=== PATIENT | female | born 1950 | race Caucasian/White ===

== ENCOUNTER 2017-01-17 08:30 | Outpatient (CLI) | payer OTHER ==
--- NOTE | 2017-01-17 11:25 | DIAGNOSTIC IMAGING REPORT ---
PROCEDURE: US ART LOWER EXT WITH BOOKER-B/L INDICATION: Diabetic wound right calf. TECHNIQUE: Preexercise ABIs were performed. The patient could not exercise (wheelchair-bound). Subsequently, color Doppler duplex imaging of the lower study was performed COMPARISON: None. FINDINGS: Study is partially limited due to body habitus. RIGHT LOWER EXTREMITY: ABIs: The patient declined blood pressure cuff due to right calf wound. 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 RIGHT LOWER EXTREMITY PEAK SYSTOLIC VELOCITIES: Common femoral artery: Triphasic 164 cm/second. Profunda femoral artery: Biphasic 56 cm/second. Proximal superficial femoral artery: Triphasic 127 cm/second. Mid superficial femoral artery: Triphasic 145 cm/second. Distal superficial femoral artery: Triphasic 103 cm/second. Popliteal artery: Triphasic 88 cm/second. Proximal posterior tibial artery: Monophasic 109 cm/second. Proximal anterior tibial artery: Biphasic 86 cm/second. Peroneal artery: N/A cm/second. Distal posterior tibial artery: Biphasic 90 cm/second. Dorsalis pedis artery: Biphasic 134 cm/second. LEFT LOWER EXTREMITY: ABIs: Left lower extremity ABIs were attempted, but are inaccurate due to noncompressible vessels and medial calcinosis. 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 LEFT LOWER EXTREMITY PEAK SYSTOLIC VELOCITIES: Common femoral artery: Triphasic 159 cm/second. Profunda femoral artery: Biphasic 140 cm/second. Proximal superficial femoral artery: Triphasic 144 cm/second. Mid superficial femoral artery: Triphasic 134 cm/second. Distal superficial femoral artery: Triphasic 130 cm/second. Popliteal artery: Triphasic 95 cm/second. Proximal posterior tibial artery: Monophasic 95 cm/second. Proximal anterior tibial artery: Biphasic 52 cm/second. Peroneal artery: N/A cm/second. Distal posterior tibial artery: Biphasic 120 cm/second. Dorsalis pedis artery: Biphasic 79 cm/second. There is a 4.7 x 1.3 x 2.8 cm right popliteal cyst (incidental finding). IMPRESSION: 1. Marked calcified changes of bilateral lower extremities consistent with diabetes and medial calcinosis. 2. Lower extremity ABIs are considered inaccurate due to noncompressibility (medial calcinosis). 3. 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 4. No evidence of significant lower extremity vascular insufficiency. 5. There is a 4.7 x 1.3 x 2.8 cm right popliteal cyst (incidental finding).
--- NOTE | 2017-01-17 11:33 | DIAGNOSTIC IMAGING REPORT ---
PROCEDURE: US VENOUS - BILATERAL EXT INDICATION: Right calf wound and venous stasis. Diabetes. TECHNIQUE: Duplex sonography of the deep venous system in the bilateral lower extremities was performed in the upright and semi-upright position. Compression and augmentation techniques were used. COMPARISON: None. FINDINGS: Study is partially limited as patient is confined wheelchair. Right lower extremity deep system: There is valvular incompetence in the deep system of the right lower extremity, including the right common femoral vein ( 1.8 cm, 9 seconds), mid right superficial femoral vein (1.5 cm, 9 seconds), although the proximal right superficial femoral vein appears competent. Right lower extremity superficial system: There is valvular incompetence in the proximal right greater saphenous vein (10 mm, 9 seconds). The mid and distal right greater saphenous vein is normal. Left lower extremity deep system: The deep system of the left lower extremities within normal limits and there is no evidence of valvular incompetence. Left lower extremity superficial system: The superficial venous system of the left lower extremity and greater saphenous vein are normal there is no evidence of valvular incompetence. IMPRESSION: 1. There is valvular incompetence in the deep venous system of the right lower extremity (right common femoral vein and right mid superficial femoral vein). 2. There is valvular incompetence in the superficial system of the right lower extremity (proximal right greater saphenous vein). 3. There is no evidence of valvular incompetence in the left lower extremity.
== END 2017-01-17 23:00 | disposition home or self-care (01) ==
LOC: US SRH 08:30
DX: I87.8 Other specified disorders of veins (principal); E83.59 Other disorders of calcium metabolism; M71.21 Synovial cyst of popliteal space [Baker], right knee; Z99.3 Dependence on wheelchair